=== PATIENT | male | born 1965 | race African-American/Black ===

== ENCOUNTER → 2020-10-28 11:21 | Outpatient (BNVA) | payer OTHER, SELFPAY | PROVIDERS: Visit Provider Internal Medicine ==

== ENCOUNTER → 2020-11-26 08:48 | Outpatient (BNVA) | payer OTHER, SELFPAY | PROVIDERS: Visit Provider Internal Medicine ==

== ENCOUNTER → 2021-01-25 08:53 | Outpatient (BNVA) | payer OTHER, SELFPAY | PROVIDERS: Visit Provider Internal Medicine ==

== ENCOUNTER 2022-06-10 12:30 | Outpatient (REF) | payer OTHER, SELFPAY ==
[2022-06-10 13:40] LABS: MANUAL DIFF FLAG NO
[2022-06-10 13:45] LABS: Basophils Percent Auto 0.6 % (0-2); Eosinophils Absolute Auto 0.2 X10*3/uL (0.0-0.4); Eosinophils Percent Auto 2.6 % (0-4); Hematocrit 43.1 % (42.0-52.0); Hemoglobin 13.5 g/dl (14.0-18.0); Imm Gran Abs Auto 0.02 X10*3/uL (0.00-0.03); Imm Gran Pct Auto 0.3 % (0.0-0.4); Lymphocytes Absolute Auto 2.5 X10*3/uL (1.2-4.9); Lymphocytes Percent Auto 38.1 % (20-40); Mean Corpuscular HGB Conc 31.3 g/dl (31.0-36.0); Mean Corpuscular Hemoglobin 25.2 pg (27.0-33.0); Mean Corpuscular Volume 80.6 fL (80.0-98.0); Mean Platelet Volume 10.4 fL (9.4-12.4); Monocytes Absolute Auto 0.6 X10*3/uL (0.1-1.2); Monocytes Percent Auto 8.5 % (2-11); Neutrophils Absolute Auto 3.3 x10*3/uL (2.0-8.3); Neutrophils Percent Auto 49.9 % (45-73); Platelet Count 215 X10*3/uL (160-400); Red Blood Count 5.35 X10*6/uL (4.60-5.80); Red Cell Distribution Width 13.7 % (11.0-16.0); White Blood Count 6.6 X10*3/uL (4.8-10.8)
[2022-06-10 13:47] LABS: Appearance Urine Clear; Color Urine Yellow; Glucose Urine UA Negative (Negative); Leukocyte Esterase Urine Negative (Negative); Nitrite Urine Negative (Negative); PH 5.5 (5.0-9.0); UMIC TRIGGER UA YES; Urine Blood Small (1+) (Negative); Urine Ketones Negative (Negative); Urine Protein 300 (3+) mg/dL (Neg-Trace)
[2022-06-10 14:00] LABS: Bacteria Urine None Seen (None Seen); Hyaline Casts Urine 0-2 /LPF (0-2); RBC Urine 0-2 /HPF (0-2); Squamous Epithelial Cell Urine 0-2 /HPF (0-2); WBC Urine 0-5 /HPF (0-5)
[2022-06-10 14:34] LABS: Alanine Aminotransferase 30 U/L (0-40); Albumin Level 3.8 g/dL (3.5-5.0); Alkaline Phosphatase 88 U/L (39-117); Anion Gap 13 (12-20); Aspartate Amino Transferase 30 U/L (5-37); Bilirubin Total 0.3 mg/dL (0.0-1.0); Blood Urea Nitrogen 16 mg/dL (9-16); Calcium 9.5 mg/dL (8.4-10.2); Carbon Dioxide 26 mmol/L (22-29); Chloride 100 mmol/L (96-108); Cholesterol 227 mg/dL; Estimated Glomerular Filt Rate > 60; Glucose Fasting 169 mg/dL (60-99); HDL Cholesterol 41 mg/dL; LDL Cholesterol Calculated 142 mg/dl; Potassium 4.1 mmol/L (3.3-5.1); Sodium 135 mmol/L (135-145); Total Protein 7.1 g/dL (6.5-8.0); Triglycerides 222 mg/dL
== END 2022-06-10 12:31 | disposition home or self-care (01) ==
LOC: HO.10HDL 12:30
PROVIDERS: Visit Provider Internal Medicine
DX: Z00.00 Encounter for general adult medical examination without abnormal findings (principal); Z12.5 Encounter for screening for malignant neoplasm of prostate
CPT/HCPCS: 36415; 80053; 80061; 81001; 84153; 85025

== ENCOUNTER → 2022-08-15 09:25 | Outpatient (BNVA) | payer OTHER, SELFPAY | PROVIDERS: PCP Internal Medicine; Visit Provider Internal Medicine | DX: Z13.89 Encounter for screening for other disorder (principal) ==

== ENCOUNTER 2023-11-13 09:27 | Outpatient (AMB) | payer OTHER, SELFPAY ==
[2023-11-13 09:38] VITALS: BP 142/90; PULSE 79; O2SAT 97; BMI 42.2
--- NOTE | 2023-11-13 09:38 | MHC.OFFVIS ---
Vital Signs 11/13/23 09:38 Height 5 ft 8 in Weight 277 lb 12.519 oz BMI 42.2 BP 142/90 H Blood Pressure Location Lt brachial Position Sitting Pulse 79 Pulse Source Pulse Oximeter Pulse Oximetry (%) 97 Oxygen Delivery Method Room Air Intake Visit Reasons: COPD Intake Note: pt is here for follow up and states he is not good with his breathing, he has a lot of phelgm at night and day with and cough is day and night. constant running nose. Grocery Specialist Required: No Allergies No Known Allergies Allergy (Unknown, Verified 11/13/23 09:55) NOT APPLICABLE Medication List - Last Reconciled 11/13/23 by Dallas Colby MD albuterol sulfate 2.5 mg (3 mL) inhalation QID PRN 30 days albuterol sulfate 90 mcg/actuation 2 puffs inhalation Q6H PRN hydrochlorothiazide 25 mg PO DAILY 30 days ipratropium-albuterol 20-100 mcg/actuation (Combivent Respimat) 1 puff PO Q6H PRN losartan (Cozaar) 50 mg PO DAILY potassium chloride ER 20 mEq PO DAILY Do you need a note to return to daycare/school/sports/work: No HPI HPI COPD: Details: This 58 years old gentleman a case of morbid obesity, bronchial asthma,, obstructive sleep apnea, and relatively uncontrolled hypertension, comes for follow-up after more than a year. He usually comes for follow-up when he runs out of his meds. Unfortunately he remains of his simple mind. Has not been using CPAP regularly, citing that his nose becomes congested, . He states that he sleeps fairly good, usually falls asleep in supine position and then turns onto his sides. He continues to have frequent nasal congestion, continues to have chest congestion with some wheezing. He is using albuterol by nebulizer 2 to 3 times a day. His the inhaler Combivent Respimat which we have provided him for better compliance, helps him a lot but he has been out of this medicine for a while. His weight remains unchanged. [facility] Medical History (Updated 11/13/23 @ 10:19 by Dallas Colby MD) Allergic rhinitis Morbid obesity JOHN on CPAP COPD (chronic obstructive pulmonary disease) Hypertension Asthma Social History Patient Tobacco Use Status: Former Tobacco user Years Smoked: 23 Review of Systems Const All systems reviewed & are unremarkable except as noted in HPI and below Eyes Reports no additional complaints ENT Reports no additional complaints Card Denies chest pain and Denies irregular heart rhythm Resp Reports as per HPI GI Reports no additional complaints Reports no additional complaints Musc Reports no additional complaints Skin/Breast Reports system reviewed and no additional complaints, except as documented Neuro Reports no additional complaints Psych Reports anxiety Endo Reports no additional complaints Michael/Lymph Reports no additional complaints Physical Exam Vital Signs: Last Vital Signs Pulse 79 11/13/23 09:38 BP 142/90 H 11/13/23 09:38 Pulse Ox 97 11/13/23 09:38 Oxygen Delivery Method Room Air 11/13/23 09:38 BMI result Body Mass Index 42.2 Const General: comfortable, no acute distress, alert and awake Orientation/consciousness: patient oriented x3 HEENT Head: Yes normal to inspection General nose exam: No nasal polyps present and No nasal discharge present Face and sinus: Yes sinuses nontender Mouth: oropharynx normal Throat: Yes posterior oropharynx normal Eyes General: appearance normal, both eyes and all related structures Neck Neck: Yes normal visual inspection, Yes no lymphadenopathy, Yes trachea midline and Yes no JVD Thyroid: Thyroid normal Chest Chest palpation & inspection: normal inspection of the chest, normal palpation of entire chest wall and no tenderness Resp Other: Good breath sounds are somewhat distant mainly because of his obesity. No wheezes or rhonchi are heard today Cardio Palpation: normal PMI Rate: regular rate Rhythm: regular rhythm Heart sounds: no gallops and no murmurs Peripheral pulses: Peripheral pulses 2+ throughout GI Palpation (GI): Soft to palpation, nontender, No hepatosplenomegaly present and no masses Auscultation: normal bowel sounds Back/Spine/Pelvis Thoracic/Lumbar Spine: thoracic and lumbar spine normal to inspection Skin General skin exam: no rashes or lesions noted Neuro General: patient oriented x3 and no focal motor deficits Cranial nerves: Yes CN's II-XII intact bilaterally Extrem General: Yes normal to inspection, Yes no clubbing, cyanosis or edema and Yes no calf tenderness Psych Appearance: grossly normal and well kempt Speech and movement: Normal speech and movement present Office Procedures Spirometry Testing Spirometry Comments: Spirometry done in the office, Dr. Colby has the results results scanned to his chart. 35853- Spirometry Results Reviewed Results Reviewed: SPIROMETRY IN THE OFFICE : FVC 54%. .FEV1 35% FEV1/FVC 50. EHN10-25 18% C/W SEVERE OBSTRUCTIVE AIRWAY DISORDER. AND ALSO MAY HAVE SIGNIFICANT RESTRICTIVE DISORDER. Assessment & Plan Assessment & Plan (1) Morbid obesity: Comment: HE REMAINS GROSSLY OBESE, Code(s): E66.01 - Morbid (severe) obesity due to excess calories Category: Medical Plan: DISCUSSED ABOUT DIET, AND DAILY EXERCISE. HE IS NOT PARTICULARLY INTERESTED IN ANY OF THESE PROGRAMS, URGED THAT HE SHOULD STILL TRY TO CUT DOWN THE AMOUNT OF CARBOHYDRATES, AND CALORIES (2) JOHN on CPAP: Comment: Longstanding history of JOHN,since 2008 , He has been using his CPAP device since 2008. He is very compliant with use of CPAP but needs a new CPAP machine, His machine is quite old, and he needs a new machine with compliance monitoring capability. Code(s): G47.33 - Obstructive sleep apnea (adult) (pediatric); Z99.89 - Dependence on other enabling machines and devices Category: Medical Plan: Order for new CPAP machine is being sent. (3) COPD (chronic obstructive pulmonary disease): Comment: HE HAS PAST HISTORY OF SMOKING. PER SPIROMETRY in october 2020 HE HAS EVIDENCE OF RATHER MODERATELY SEVERE COPD. IT IS NO LONGER JUST ASTHMA, He was not able to use Advair. He has a tendency to be noncompliant. SPIROMETRY TODAY AGAIN SHOWS A COMBINATION OF RESTRICTIVE LUNG DISEASE. AND RATHER SEVERE OBSTRUCTIVE AIRWAY DISORDER. Code(s): J44.9 - Chronic obstructive pulmonary disease, unspecified Category: Medical Plan: [place]: ADVISED TO USE Combivent Respimat 1 inhalation tid regularly. Albuterol solution in the nebulizer Q 6 hours only p.r.n.. (4) Allergic rhinitis: Comment: He complains of frequent bouts of nasal congestion with postnasal discharge. I think he has chronic allergic rhinitis. Code(s): J30.9 - Allergic rhinitis, unspecified Category: Medical Plan: Will advise him to use Flonase nasal spray 2 sprays in each nostril daily at night. May use OTC antihistaminic agent such as Claritin or Zyrtec 10 mg once a day. Coding Level of Care Code Tele New Pt Level 4 (13988) Diagnoses Morbid obesity E66.01 JOHN on CPAP G47.33; Z99.89 COPD (chronic obstructive pulmonary disease) J44.9 Allergic rhinitis J30.9 CPT Codes Spirometry - CPT: 79810- Spirometry ([id number])
== END 2023-11-13 10:14 | disposition home or self-care (01) ==
PROVIDERS: PCP Internal Medicine; Visit Provider Internal Medicine
DX: J44.9 Chronic obstructive pulmonary disease, unspecified (principal); G47.33 Obstructive sleep apnea (adult) (pediatric); Z99.89 Dependence on other enabling machines and devices; E66.01 Morbid (severe) obesity due to excess calories
CPT/HCPCS: 94010; 99214

== ENCOUNTER → 2023-11-13 09:27 | Outpatient (BNVA) | payer OTHER, SELFPAY | PROVIDERS: PCP Internal Medicine; Visit Provider Internal Medicine | DX: J44.9 Chronic obstructive pulmonary disease, unspecified (principal); J30.9 Allergic rhinitis, unspecified; G47.33 Obstructive sleep apnea (adult) (pediatric); E66.01 Morbid (severe) obesity due to excess calories; Z68.41 Body mass index [BMI] 40.0-44.9, adult; Z99.89 Dependence on other enabling machines and devices | CPT/HCPCS: 94010 ==

== ENCOUNTER 2024-04-17 10:04 | Outpatient (AMB) | payer OTHER, SELFPAY ==
[2024-04-17 10:21] VITALS: BP 170/100; PULSE 90; O2SAT 97; BMI 43.1
--- NOTE | 2024-04-17 10:21 | A.OFFVIS_ITS ---
Vital Signs 04/17/24 10:21 Height 5 ft 8 in Weight 283 lb 4.704 oz BMI 43.1 BP 170/100 H Blood Pressure Location Lt brachial Position Sitting Pulse 90 Pulse Source Pulse Oximeter Pulse Oximetry (%) 97 Oxygen Delivery Method Room Air Intake Visit Reasons: copd Intake Note: pt is here for follow up of JOHN, and he has new cpap, doing well, not feeling well today, has URI. All inhalers need to be filled and please refill for albuterol for nebulizer. 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 Allergies No Known Allergies Allergy (Unknown, Verified 04/17/24 10:53) NOT APPLICABLE Medication List - Last Reconciled 04/17/24 by Dallas Colby MD albuterol sulfate 90 mcg/actuation 2 puffs inhalation Q4-6H PRN 90 days albuterol sulfate 2.5 mg (3 mL) inhalation QID PRN fluticasone propionate 50 mcg/actuation (Flonase Allergy Relief) 2 sprays intranasal DAILY 90 days hydrochlorothiazide 25 mg PO DAILY 30 days ipratropium-albuterol 20-100 mcg/actuation (Combivent Respimat) 1 puff PO Q6H PRN losartan (Cozaar) 50 mg PO DAILY potassium chloride ER 20 mEq PO DAILY Do you need a note to return to daycare/school/sports/work: No HPI HPI copd: Details: THIS 59 YEARS OLD GENTLEMAN WITH MORBID OBESITY AND OBSTRUCTIVE SLEEP APNEA COMES FOR FOLLOW-UP AFTER 4 MONTHS. HE GOT HIS NEW CPAP DEVICE WHICH WORKS MUCH BETTER FOR HIM. AND HE IS USING IT MORE REGULARLY. HE WORKS AT NIGHT, A TREATMENT PLANT OPERATOR AT [employer], AND HE SLEEPS MOSTLY DURING THE DAYTIME. HE HAS BEEN USING THE CPAP FOR MORE THAN 8 HOURS PER DAY. BREATHING MEJIA HE HAS HAD FREQUENT BOUTS OF CONGESTED FEELING, AND HAS BEEN USING ALBUTEROL HFA OR THE NEBULIZER ABOUT 3 TO 4 TIMES A DAY. HE ALSO DOES HAVE COMBIVENT RESPIMAT WHICH HE HAS NOT BEEN USING REGULARLY. DOES NOT HAVE ANY LONG-ACTING BRONCHODILATOR PREP AT THIS TIME. CLAIMS THAT FOR THE PAST 1 WEEK HE HAS MORE CONGESTION AND NEED TO USE ALBUTEROL MORE FREQUENTLY. HE DOES HAVE CHRONIC NASAL ALLERGIES BUT CONTROLLED WELL WITH USE OF FLONASE. COUNTS INCLUDE 234 BEDS AT THE [facility] Medical History Allergic rhinitis Morbid obesity JOHN on CPAP COPD (chronic obstructive pulmonary disease) Hypertension Asthma Social History Patient Tobacco Use Status: Former Tobacco user Years Smoked: 23 Review of Systems Const All systems reviewed & are unremarkable except as noted in HPI and below Eyes Reports no additional complaints ENT Reports no additional complaints Card Denies chest pain and Denies irregular heart rhythm Resp Reports as per HPI GI Reports no additional complaints Reports no additional complaints Musc Reports no additional complaints Skin/Breast Reports system reviewed and no additional complaints, except as documented Neuro Reports no additional complaints Psych Reports anxiety Endo Reports no additional complaints Michael/Lymph Reports no additional complaints Physical Exam Vital Signs: Last Vital Signs Pulse 90 04/17/24 10:21 BP 170/100 H 04/17/24 10:21 Pulse Ox 97 04/17/24 10:21 Oxygen Delivery Method Room Air 04/17/24 10:21 BMI result Body Mass Index 43.1 Const General: comfortable, no acute distress, alert and awake Orientation/consciousness: patient oriented x3 HEENT Head: Yes normal to inspection General nose exam: No nasal polyps present and No nasal discharge present Face and sinus: Yes sinuses nontender Mouth: oropharynx normal Throat: Yes posterior oropharynx normal Eyes General: appearance normal, both eyes and all related structures Neck Neck: Yes normal visual inspection, Yes no lymphadenopathy, Yes trachea midline and Yes no JVD Thyroid: Thyroid normal Chest Chest palpation & inspection: normal inspection of the chest, normal palpation of entire chest wall and no tenderness Resp Other: Good breath sounds are somewhat distant mainly because of his obesity. No wheezes or rhonchi are heard today Cardio Palpation: normal PMI Rate: regular rate Rhythm: regular rhythm Heart sounds: no gallops and no murmurs Peripheral pulses: Peripheral pulses 2+ throughout GI Palpation (GI): Soft to palpation, nontender, No hepatosplenomegaly present and no masses Auscultation: normal bowel sounds Back/Spine/Pelvis Thoracic/Lumbar Spine: thoracic and lumbar spine normal to inspection Skin General skin exam: no rashes or lesions noted Neuro General: patient oriented x3 and no focal motor deficits Cranial nerves: Yes CN's II-XII intact bilaterally Extrem General: Yes normal to inspection, Yes no clubbing, cyanosis or edema and Yes no calf tenderness Psych Appearance: grossly normal and well kempt Speech and movement: Normal speech and movement present Results Reviewed Results Reviewed: COMPLIANCE REPORT FOR THE LAST 30 NIGHTS IS REVIEWED. HE HAS USED 30/30 DAYS, 100%. AVERAGE USE IT PER DAY 9 HOURS 36 MINUTES. .PRESSURE 40 CM .THERE IS NO SIGNIFICANT AIR LEAK RESIDUAL AHI 0.5 Assessment & Plan Assessment & Plan (1) Morbid obesity: Comment: HE REMAINS GROSSLY OBESE, Code(s): E66.01 - Morbid (severe) obesity due to excess calories Category: Medical Plan: HE WORKS THE [employer] FIT[employer] AND DURING HIS WORKING HOURS HE TENDS TO EAT MORE EXCESSIVELY. EDUCATED ABOUT THE DIET, CUT DOWN THE INTAKE OF CALORIES AND ESPECIALLY CUT DOWN THE INTAKE OF CARBOHYDRATES. (2) JOHN on CPAP: Comment: Longstanding history of JOHN,since 2008 , He has been using his CPAP device since 2008. HE HAD HIS NEW CPAP DEVICE SINCE HIS LAST VISIT AND IS USING IT MORE REGULARLY. SLEEPS GOOD, DURING THE DAYTIME. Code(s): G47.33 - Obstructive sleep apnea (adult) (pediatric); Z99.89 - Dependence on other enabling machines and devices Category: Medical Plan: COMMENDED FOR GOOD COMPLIANCE AND ADVISED TO KEEP ON USING HIS CPAP EVERY NIGHT REGULARLY. (3) Allergic rhinitis: Comment: He complains of frequent bouts of nasal congestion with postnasal discharge. I think he has chronic allergic rhinitis. The nasal congestion is much less since he is using Flonase daily. Code(s): J30.9 - Allergic rhinitis, unspecified Category: Medical Plan: CONTINUE USING FLONASE SPRAY 2 SPRAY EACH NOSTRIL DAILY (4) COPD (chronic obstructive pulmonary disease): Comment: HE HAS PAST HISTORY OF SMOKING. As per spirometry in October 2020 and on last visit, he has evidence of moderately severe chronic obstructive lung disease. Currently he is using albuterol somewhat excessively, because he is not on any long-acting ICS/LABA agent. I think he will do better by using fluticasone-salmeterol (Wixela ) 1 inhalation b.i.d.. Advised to use albuterol HFA or albuterol in the nebulizer only p.r.n. and no more than once or twice a day. Code(s): J44.9 - Chronic obstructive pulmonary disease, unspecified Category: Medical Plan: Wixela 250-51 inhalation b.i.d.. Albuterol HFA 2 puffs Q 4-6 hours p.r.n. .but use only sparingly Albuterol solution in the nebulizer Q 4-6 hours p.r.n. when at home Medications: New fluticasone propion-salmeterol 250-50 mcg/dose (Wixela Inhub) 1 inh inhalation BID 60 ea 4RF copd 30 days Coding Level of Care Code Est Pt Level 4 (50202) Diagnoses Morbid obesity E66.01 JOHN on CPAP G47.33; Z99.89 Allergic rhinitis J30.9 COPD (chronic obstructive pulmonary disease) J44.9
== END 2024-04-17 11:07 | disposition home or self-care (01) ==
PROVIDERS: PCP Internal Medicine; Visit Provider Internal Medicine
DX: E66.01 Morbid (severe) obesity due to excess calories (principal); G47.33 Obstructive sleep apnea (adult) (pediatric); Z99.89 Dependence on other enabling machines and devices; J30.9 Allergic rhinitis, unspecified; J44.9 Chronic obstructive pulmonary disease, unspecified
CPT/HCPCS: 99214